=== PATIENT | male | born 1960 | race American Indian/Alaskan Native ===

== ENCOUNTER 2016-08-03 10:27 | Outpatient (CLI) | payer OTHER ==
--- NOTE | 2016-08-03 12:33 | XRay Report ---
RIGHT SHOULDER: Routine views demonstrate normal bony and soft tissue structures with normal joint alignment of the shoulder. IMPRESSION: Unremarkable right shoulder
--- NOTE | 2016-08-03 12:34 | XRay Report ---
LUMBOSACRAL SPINE, 3 VIEWS: History: Back pain Findings: Mild degenerative disc disease and moderate facet arthropathy is identified throughout the lumbar spine. No evidence for compression deformity, subluxation or bone lesion. The sacrum and SI joints are unremarkable. Impression: Lumbar spondylosis. No acute process is noted.
--- NOTE | 2016-08-03 12:46 | XRay Report ---
LEFT KNEE RADIOGRAPHS INDICATION: Back pain, hip trouble, wear a knee brace. COMPARISON: None similar. FINDINGS: AP and lateral left knee radiographs demonstrate intact articulation. Slight degenerative tibial spine prominence. Mild medial compartment narrowing. Faint horizontal densities may project within the joint spaces, medial more than lateral. No suprapatellar effusion. Heterogeneous 1 cm round calcification behind the knee also seen. CONCLUSION: Mild left knee degenerative changes/possible chondrocalcinosis without acute fracture or dislocation, as described. Please correlate. Thank you for the opportunity to participate in this patient's care.
== END 2016-08-03 10:28 | disposition home or self-care (01) ==
LOC: XRAY 10:27
PROVIDERS: ATTEND Internal Medicine
DX: M17.12 Unilateral primary osteoarthritis, left knee (principal); M47.896 Other spondylosis, lumbar region; M51.36 Other intervertebral disc degeneration, lumbar region; M12.88 Other specific arthropathies, not elsewhere classified, other specified site; M25.511 Pain in right shoulder
CPT/HCPCS: 72100